=== PATIENT | male | born 1965 | race Caucasian/White ===

== ENCOUNTER 2017-06-15 09:43 | Outpatient (CLI) | payer OTHER ==
--- NOTE | 2017-06-15 11:34 | XRay Report ---
Right knee: Periarticular spurs are present involving both medial and lateral compartments. Spurs are also present at the superior and inferior articular margins of the patella and at the articular surface of the anterior femoral condyles. There is narrowing of the medial compartment however the articular surfaces appeared generally smooth. There is some question concerning a loose body in the central knee joint. The joint appears generally well aligned. The bones are well-mineralized. There is no effusion but there may be mild tissue edema anteriorly. Impressions: Degenerative knee joint changes as described with significant medial compartment narrowing. Questionable loose body in the central joint. Lumbar spine: Back pain. AP and lateral views demonstrates collapse of the T10-11 interspace with anterior traction spurs. There is mild narrowing of the L2-3 and L5-S1 interspaces. Anterior spurs are predominantly noted at L3-4 and L4-5 levels. The distal sacrum has a posteriorly angulated contour with slight posterior displacement. There is good alignment and good preservation of vertebral height at all levels. The bones are well-mineralized. Impression: 1. Degenerative changes as detailed above. 2. Abnormal distal sacral contour. Questionable prior trauma.
== END 2017-06-15 09:44 | disposition home or self-care (01) ==
LOC: XRAY 09:43
PROVIDERS: ATTEND Internal Medicine
DX: M17.11 Unilateral primary osteoarthritis, right knee (principal); M47.896 Other spondylosis, lumbar region; M53.84 Other specified dorsopathies, thoracic region
CPT/HCPCS: 72100

== ENCOUNTER → 2019-04-18 | Outpatient (CLI) | payer MEDICAID | END | disposition home or self-care (01) | LOC: SLR 11:00 | PROVIDERS: ATTEND Specialist | DX: G47.30 Sleep apnea, unspecified (principal) | CPT/HCPCS: 95811 ==

== ENCOUNTER 2019-06-30 06:25 | Emergency (ER) | payer MEDICAID ==
[2019-06-30 09:21] VITALS: BP 155/77
--- NOTE | 2019-06-30 09:30 | Emergency Department Report ---
Chief Complaint: High BP Stated Complaint: HBP Time Seen by Provider: 06/30/19 09:14 - HPI History of Present Illness: This is a 53-year-old male here complaining of elevated blood pressure that has been running high. He said he awoke this morning his blood pressure was 189/113. Patient denies any chest pain shortness of breath, dizziness, headache, nausea vomiting, unsteady gait or numbness or tingling to extremities. Pain is 0-10. Patient said when he woke up this morning in his clinic was not open and he came to the ER. Patient reportedly takes lisinopril 40 mg daily which she took last night. Denies any fever or chills. - ROS Review of Systems: All systems are negative except elevated blood pressure. - Exam Vital Signs: Vital Signs 06/30/19 06/30/19 06:31 09:20 Temperature 98.4 F Pulse Rate 89 88 Respiratory 18 20 Rate Blood Pressure 180/93 Blood Pressure 155/77 [Left] O2 Sat by Pulse 90 Oximetry Physical Exam: Gen.: This is 53-year-old male, obese in no acute distress. Vital signs stable, afebrile. CV: S1, S2. Regular rate and rhythm. No murmur Lungs: CTAB, EXT: No CCE Neurological: focal deficit MSE screening note: Focused history and physical exam performed. Due to findings the following was ordered: Patient's medically screened and he will be going to his clinic. Patient discussed with doctor:: BRIANA CORTEZ ED Medical Decision Making - Medical Decision Making This is a 53-year-old male came in for elevated blood pressure with blood pressure in triage 180/93 and blood pressure in ED room stable. Patient is on blood pressure medication lisinopril 40 mg daily which she said he took last night. Patient blood pressure is better and he goes to a clinic that is open today. I discussed with him that his blood pressure is better and he is asymptomatic. I also discussed with him that this is not an emergency problem and needs to follow-up with his primary care clinic. He said he called and he said they called him prescription for water medication to add to his lisinopril and he will see them in a couple days. I discussed with him he needs to continue to monitor his blood pressure and if his elevated with symptoms of shortness of breath, chest pain, nausea and vomiting, headache, dizziness, slurred speech and her facial drooping to return to the emergency room [facility] otherwise keep his appointment and his primary care clinic here and he voiced understanding. Patient discharged home and medical screening exam form signed. ED Disposition for MSE Clinical Impression: Hypertension Qualifiers: Hypertension type: essential hypertension Qualified Code(s): I10 - Essential (primary) hypertension Disposition: MED SCREENING EXAM-LEFT Does the pt Need Aspirin: No Condition: Stable
== END 2019-06-30 09:30 | disposition left against medical advice (07) ==
LOC: ED 06:25
DX: I10 Essential (primary) hypertension (principal)
CPT/HCPCS: 99281

== ENCOUNTER 2019-07-11 11:00 | Outpatient (CLI) | payer MEDICAID | END 2019-07-11 11:01 | disposition home or self-care (01) | LOC: SLR 11:00 | PROVIDERS: ATTEND Specialist | DX: G47.33 Obstructive sleep apnea (adult) (pediatric) (principal); R40.0 Somnolence | CPT/HCPCS: 95811 ==